=== PATIENT | male | born 1935 | race Caucasian/White ===

== ENCOUNTER 2017-04-13 18:15 | Inpatient (IN) | payer MEDICARE ==
[~2017-04-13] VITALS: Ht 188 cm; Wt 89.0 kg
[2017-04-13] VITALS (16 sets, daily range): BP systolic 66–119; BP diastolic 37–63
[~2017-04-13 18:15] MED LIST: AMOXICILLIN500 MG PO; BABY ASPIRIN81 MG PO; CODLIVER OIL OR; E400400 UNIT PO; FISH OIL1000 MG PO; GABAPENTIN300 MG PO; GARLIC100 MG OR; LISINOPRIL5 MG PO; LYRICA50 MG PO; MULTIVITAM10 OR; VALTREX1 GM PO; VITAMIN B-121000 MC1 SL; VITAMIN C500 MG PO; ZINC25 MG PO
[2017-04-13 18:51] LABS: HEMATOCRIT 33.9 % (39.0-50.0); HEMOGLOBIN 11.5 g/dl (14.0-18.0); IMMATURE GRANULOCYTES 1.8 % (0.0-1.0); MEAN CELL VOLUME 89.4 fL CALC (80.0-100.0); MEAN CORPUSCULAR HGB 30.3 pG CALC (26.0-32.0); MEAN CORPUSCULAR HGB CONC 33.9 g/L CALC (32.0-36.0); NEUT# 8.05 thou/uL (1.82-7.42); RED BLOOD COUNT 3.79 mill/uL (4.70-6.10); RED CELL DISTRI WIDTH 13.2 % (11.5-15.5)
[2017-04-13] MEDS ORDERED: ASPIRIN81 MG PO (19:00)
[2017-04-13] MEDS ORDERED: LIPITOR20 MG PO (19:01)
[2017-04-13 19:02] LABS: ALBUMIN 2.8 g/dL (3.2-5.0); BILIRUBIN, TOTAL 0.8 mg/dL (0.0-1.4); CALCIUM 8.2 mg/dL (8.4-10.2); POTASSIUM 4.2 mmol/l (3.5-5.1); TOTAL PROTEIN 5.1 g/dL (6.3-8.2)
[2017-04-13 19:05] LABS: CREATININE 5.3 mg/dL (0.7-1.3)
[2017-04-13 20:01] LABS: URINE BILIRUBIN - DIPSTICK NEGATIVE (NEGATIVE); URINE BLOOD DIPSTICK NEGATIVE (NEGATIVE); URINE COLOR YELLOW; URINE GLUCOSE - DIPSTICK NEGATIVE (NEGATIVE); URINE KETONE TRACE mg/dL (NEGATIVE); URINE LEUK ESTERASE NEGATIVE (NEGATIVE); URINE NITRITE - DIPSTICK NEGATIVE (Negative); URINE PROTEIN - DIPSTICK NEGATIVE (NEG-TRACE); URINE SPECIFIC GRAVITY >=1.030; URINE UROBILINOGEN - DIPSTICK 0.2 E.U./dL (0.2)
[2017-04-13 20:05] LABS: URINE CLARITY CLEAR
[2017-04-13 22:48] LABS: HEMATOCRIT 28.9 % (39.0-50.0); HEMOGLOBIN 9.7 g/dl (14.0-18.0)
[2017-04-14] VITALS: BP 116/54
[2017-04-14 00:15] VITALS: BP 117/53
== END 2017-04-14 00:30 | DRG 683 ==
LOC: ED 18:15 → ED-I 19:20 → ED 19:38 → ICU 19:39
PROVIDERS: Emergency Medicine; ADMIT Internal Medicine; ATTEND Internal Medicine
PROC: 30233N1 Transfusion of Nonautologous Red Blood Cells into Peripheral Vein, Percutaneous Approach (ICD-10-PCS; principal; 2017-04-14)
DX: N17.9 Acute kidney failure, unspecified (principal); D62 Acute posthemorrhagic anemia; R19.5 Other fecal abnormalities; H91.93 Unspecified hearing loss, bilateral; D33.3 Benign neoplasm of cranial nerves; Z92.3 Personal history of irradiation; Z86.73 Personal history of transient ischemic attack (TIA), and cerebral infarction without residual deficits
CPT/HCPCS: P9016; S0164

== ENCOUNTER 2017-07-17 20:30 | Inpatient (IN) | payer MEDICARE ==
[~2017-07-17] VITALS: Ht 188 cm; Wt 95.3 kg
[~2017-07-17 20:30] MED LIST changes: +ASPIRIN81 MG PO; +LIPITOR20 MG PO
[2017-07-17 21:06] LABS: URINE BILIRUBIN - DIPSTICK NEGATIVE (NEGATIVE); URINE BLOOD DIPSTICK NEGATIVE (NEGATIVE); URINE COLOR YELLOW; URINE GLUCOSE - DIPSTICK NEGATIVE (NEGATIVE); URINE KETONE NEGATIVE (NEGATIVE); URINE LEUK ESTERASE TRACE (NEGATIVE); URINE NITRITE - DIPSTICK NEGATIVE (Negative); URINE PH 5.5 (4.5-8.0); URINE PROTEIN - DIPSTICK 30 mg/dL (NEG-TRACE); URINE SPECIFIC GRAVITY >=1.030; URINE UROBILINOGEN - DIPSTICK 0.2 E.U./dL (0.2)
[2017-07-17 21:06] LABS: HEMATOCRIT 38.7 % (39.0-50.0); HEMOGLOBIN 12.7 g/dl (14.0-18.0); IMMATURE GRANULOCYTES 0.2 % (0.0-1.0); MEAN CELL VOLUME 91.1 fL CALC (80.0-100.0); MEAN CORPUSCULAR HGB 29.9 pG CALC (26.0-32.0); MEAN CORPUSCULAR HGB CONC 32.8 g/L CALC (32.0-36.0); NEUT# 4.44 thou/uL (1.82-7.42); RED BLOOD COUNT 4.25 mill/uL (4.70-6.10); RED CELL DISTRI WIDTH 13.1 % (11.5-15.5)
[2017-07-17 21:13] LABS: URINE CLARITY CLEAR; URINE RBC 0-2 RBC/hpf (0-5)
[2017-07-17 21:19] LABS: INFLUENZA A NONE DETECTED (NONE DETECT); INFLUENZA B NONE DETECTED (NONE DETECT)
[2017-07-17 21:19] LABS: ALBUMIN 4.1 g/dL (3.2-5.0); BILIRUBIN, TOTAL 0.7 mg/dL (0.0-1.4); CREATININE 1.6 mg/dL (0.7-1.3); POTASSIUM 4.1 mmol/l (3.5-5.1)
[2017-07-17] MEDS ORDERED: AMLODIPINE5 MG PO (22:21)
[2017-07-17] MEDS ORDERED: METOPROL TAR25 MG PO (22:22)
[2017-07-17] MEDS ORDERED: PROTONIX40 M2 PO (22:22)
[2017-07-17] MEDS ORDERED: CARAFATE PO (22:23)
[2017-07-17] MEDS ORDERED: FERR SULFATE325 MG PO (22:24)
[2017-07-17 22:44] VITALS: BP 120/69
[2017-07-18] VITALS (8 sets, daily range): BP systolic 103–160; BP diastolic 61–84
[2017-07-19 03:53] VITALS: BP 139/72
[2017-07-19 08:55] VITALS: BP 139/64
[2017-07-19 12:03] VITALS: BP 129/68
[2017-07-19 17:07] VITALS: BP 131/71
[2017-07-19 19:30] VITALS: BP 122/55
[2017-07-20 00:45] VITALS: BP 138/70
[2017-07-20 04:40] VITALS: BP 139/76
[2017-07-20 05:18] LABS: HEMATOCRIT 33.7 % (39.0-50.0); HEMOGLOBIN 11.2 g/dl (14.0-18.0); IMMATURE GRANULOCYTES 0.4 % (0.0-1.0); MEAN CELL VOLUME 89.9 fL CALC (80.0-100.0); MEAN CORPUSCULAR HGB 29.9 pG CALC (26.0-32.0); MEAN CORPUSCULAR HGB CONC 33.2 g/L CALC (32.0-36.0); NEUT# 2.45 thou/uL (1.82-7.42); RED BLOOD COUNT 3.75 mill/uL (4.70-6.10); RED CELL DISTRI WIDTH 12.9 % (11.5-15.5)
[2017-07-20 05:38] LABS: BILIRUBIN, TOTAL 0.4 mg/dL (0.0-1.4); CREATININE 1.4 mg/dL (0.7-1.3); MAGNESIUM 1.7 mg/dL (1.6-2.3); POTASSIUM 4.1 mmol/l (3.5-5.1); TOTAL PROTEIN 5.6 g/dL (6.3-8.2)
[2017-07-20 05:39] LABS: ALBUMIN 2.9 g/dL (3.2-5.0)
[2017-07-20 08:38] VITALS: BP 141/87
[2017-07-20 10:48] VITALS: BP 132/77
== END 2017-07-20 15:00 | disposition home or self-care (01) | DRG 872 ==
LOC: ED 20:30 → ED-I 20:50 → ED 21:42 → MS2 21:43
PROVIDERS: Emergency Medicine; Nurse Practitioner Family; ADMIT Internal Medicine; ATTEND Internal Medicine
DX: A41.89 Other specified sepsis (principal); I48.91 Unspecified atrial fibrillation; I69.391 Dysphagia following cerebral infarction; F41.9 Anxiety disorder, unspecified; F42.9 Obsessive-compulsive disorder, unspecified; R13.10 Dysphagia, unspecified; K26.9 Duodenal ulcer, unspecified as acute or chronic, without hemorrhage or perforation
CPT/HCPCS: J0692

== ENCOUNTER → 2018-05-18 | Outpatient (REF) | payer MEDICARE ==
[~2018-05-18] MED LIST changes: +AMLODIPINE5 MG PO; +CARAFATE PO; +FERR SULFATE325 MG PO; +METOPROL TAR25 MG PO; +PROTONIX40 M2 PO
[2018-05-18 11:20] LABS: HEMOGLOBIN 13.7 g/dl (14.0-18.0); MEAN CELL VOLUME 92.9 fL CALC (80.0-100.0); MEAN CORPUSCULAR HGB 30.3 pG CALC (26.0-32.0); MEAN CORPUSCULAR HGB CONC 32.6 g/L CALC (32.0-36.0); RED BLOOD COUNT 4.52 mill/uL (4.70-6.10); RED CELL DISTRI WIDTH 13.2 % (11.5-15.5)
[2018-05-18 11:40] LABS: ALBUMIN 3.9 g/dL (3.2-5.0); BILIRUBIN, TOTAL 0.6 mg/dL (0.0-1.4); CHOLESTEROL HDL RATIO 2.4 (<4.4 (CALC)); CREATININE 1.6 mg/dL (0.7-1.3); POTASSIUM 4.4 mmol/l (3.5-5.1); TOTAL PROTEIN 6.4 g/dL (6.3-8.2)
== END | disposition home or self-care (01) ==
LOC: LAB 10:16
PROVIDERS: ATTEND Internal Medicine
DX: D33.3 Benign neoplasm of cranial nerves (principal); I48.0 Paroxysmal atrial fibrillation; N18.3 Chronic kidney disease, stage 3 (moderate); Z86.73 Personal history of transient ischemic attack (TIA), and cerebral infarction without residual deficits; Z87.11 Personal history of peptic ulcer disease; I10 Essential (primary) hypertension

== ENCOUNTER 2018-12-25 06:19 | Emergency (ER) | payer MEDICARE ==
[~2018-12-25] VITALS: Ht 188 cm; Wt 90.0 kg
[2018-12-25 06:57] LABS: HEMATOCRIT 40.5 % (39.0-50.0); HEMOGLOBIN 13.3 g/dl (14.0-18.0); IMMATURE GRANULOCYTES 0.3 % (0.0-5.0); MEAN CELL VOLUME 90.8 fL CALC (80.0-100.0); MEAN CORPUSCULAR HGB 29.8 pG CALC (26.0-32.0); MEAN CORPUSCULAR HGB CONC 32.8 g/L CALC (32.0-36.0); NEUT# 7.46 thou/uL (1.82-7.42); RED BLOOD COUNT 4.46 mill/uL (4.70-6.10); RED CELL DISTRI WIDTH 13.1 % (11.5-15.5)
[2018-12-25] MEDS ORDERED: COUMADIN5 MG PO (07:03)
[2018-12-25] MEDS ORDERED: WARFARIN2.5 MG PO (07:04)
[2018-12-25 07:09] LABS: ALBUMIN 3.9 g/dL (3.2-5.0); BILIRUBIN, TOTAL 0.8 mg/dL (0.0-1.4); CREATININE 1.5 mg/dL (0.7-1.3); POTASSIUM 4.7 mmol/l (3.5-5.1); TOTAL PROTEIN 6.5 g/dL (6.3-8.2)
[2018-12-25 07:32] LABS: MYOGLOBIN 52 ng/mL (0 - 121)
[2018-12-25 08:39] LABS: URINE BILIRUBIN - DIPSTICK NEGATIVE (NEGATIVE); URINE BLOOD DIPSTICK NEGATIVE (NEGATIVE); URINE COLOR YELLOW; URINE GLUCOSE - DIPSTICK NEGATIVE (NEGATIVE); URINE KETONE NEGATIVE (NEGATIVE); URINE LEUK ESTERASE NEGATIVE (NEGATIVE); URINE NITRITE - DIPSTICK NEGATIVE (Negative); URINE PROTEIN - DIPSTICK NEGATIVE (NEG-TRACE); URINE SPECIFIC GRAVITY 1.025; URINE UROBILINOGEN - DIPSTICK 0.2 E.U./dL (0.2)
[2018-12-25 10:27] VITALS: BP 149/58
== END 2018-12-25 10:18 | disposition short-term general hospital (02) ==
LOC: ED 06:19
PROVIDERS: Emergency Medicine
DX: I71.2 Thoracic aortic aneurysm, without rupture (principal); M54.6 Pain in thoracic spine; N18.3 Chronic kidney disease, stage 3 (moderate); Z86.73 Personal history of transient ischemic attack (TIA), and cerebral infarction without residual deficits
CPT/HCPCS: Q9967

== ENCOUNTER 2019-01-22 00:42 | Inpatient (IN) | payer MEDICARE ==
[~2019-01-22] VITALS: Ht 188 cm; Wt 99.0 kg
[~2019-01-22 00:42] MED LIST changes: +COUMADIN5 MG PO; +WARFARIN2.5 MG PO
[2019-01-22 01:13] LABS: HEMATOCRIT 36.5 % (39.0-50.0); HEMOGLOBIN 11.7 g/dl (14.0-18.0); IMMATURE GRANULOCYTES 0.4 % (0.0-5.0); MEAN CELL VOLUME 92.6 fL CALC (80.0-100.0); MEAN CORPUSCULAR HGB 29.7 pG CALC (26.0-32.0); MEAN CORPUSCULAR HGB CONC 32.1 g/L CALC (32.0-36.0); NEUT# 6.83 thou/uL (1.82-7.42); RED BLOOD COUNT 3.94 mill/uL (4.70-6.10); RED CELL DISTRI WIDTH 14.2 % (11.5-15.5)
[2019-01-22 01:31] LABS: ALBUMIN 3.2 g/dL (3.2-5.0); ANION GAP 11 (6-22 (CALC)); BILIRUBIN, TOTAL 0.7 mg/dL (0.0-1.4); BUN 23 mg/dL (8-23); BUN/CREATININE RATIO 17 (12-20 (CALC)); CARBON DIOXIDE 25 mmol/l (22-30); CHLORIDE 108 mmol/l (95-108); CREATININE 1.4 mg/dL (0.7-1.3); GFR 49 ML/MIN (>=60 (CALC)); GFR FOR AFR.AMER. 59 ML/MIN (>=60 (CALC)); POTASSIUM 4.1 mmol/l (3.5-5.1); SGOT/AST 18 u/l (19-48); SODIUM 140 mmol/l (137-146); TOTAL PROTEIN 5.8 g/dL (6.3-8.2)
[2019-01-22 01:32] LABS: ALKALINE PHOSPHATASE 187 u/l (38-126)
[2019-01-22 01:39] LABS: MYOGLOBIN 42 ng/mL (0 - 121)
[2019-01-22 01:51] LABS: URINE BILIRUBIN - DIPSTICK NEGATIVE (NEGATIVE); URINE BLOOD DIPSTICK TRACE-INTACT (NEGATIVE); URINE COLOR YELLOW; URINE GLUCOSE - DIPSTICK NEGATIVE (NEGATIVE); URINE KETONE NEGATIVE (NEGATIVE); URINE LEUK ESTERASE NEGATIVE (NEGATIVE); URINE NITRITE - DIPSTICK NEGATIVE (Negative); URINE PH 5.5 (4.5-8.0); URINE PROTEIN - DIPSTICK NEGATIVE (NEG-TRACE); URINE UROBILINOGEN - DIPSTICK 0.2 E.U./dL (0.2)
[2019-01-22 04:20] VITALS: BP 130/65
[2019-01-22 05:30] LABS: HEMOGLOBIN 10.8 g/dl (14.0-18.0); IMMATURE GRANULOCYTES 0.4 % (0.0-5.0); MEAN CELL VOLUME 94.2 fL CALC (80.0-100.0); MEAN CORPUSCULAR HGB 29.9 pG CALC (26.0-32.0); MEAN CORPUSCULAR HGB CONC 31.8 g/L CALC (32.0-36.0); NEUT# 11.95 thou/uL (1.82-7.42); RED BLOOD COUNT 3.61 mill/uL (4.70-6.10); RED CELL DISTRI WIDTH 14.1 % (11.5-15.5)
[2019-01-22 05:45] LABS: ALBUMIN 2.7 g/dL (3.2-5.0); BILIRUBIN, TOTAL 0.6 mg/dL (0.0-1.4); CREATININE 1.5 mg/dL (0.7-1.3); POTASSIUM 3.8 mmol/l (3.5-5.1); TOTAL PROTEIN 5.2 g/dL (6.3-8.2)
[2019-01-22 07:57] LABS: INTERNATIONAL NORMALIZED RATIO 3.9 RATIO (0.7-1.3); PROTHROMBIN TIME 38.1 SECONDS (9.0-12.5)
[2019-01-22] MEDS ORDERED: AMIODARONE200 MG PO (10:13)
[2019-01-22 17:15] VITALS: BP 134/72
[2019-01-22 19:18] VITALS: BP 159/77
[2019-01-23 00:12] VITALS: BP 144/73
[2019-01-23 03:29] VITALS: BP 147/88
[2019-01-23 05:59] LABS: INTERNATIONAL NORMALIZED RATIO 3.5 RATIO (0.7-1.3); PROTHROMBIN TIME 34.9 SECONDS (9.0-12.5)
[2019-01-23 07:59] VITALS: BP 123/81
[2019-01-23 08:30] LABS: HEMATOCRIT 35.3 % (39.0-50.0); HEMOGLOBIN 11.4 g/dl (14.0-18.0); IMMATURE GRANULOCYTES 0.3 % (0.0-5.0); MEAN CELL VOLUME 93.1 fL CALC (80.0-100.0); MEAN CORPUSCULAR HGB 30.1 pG CALC (26.0-32.0); MEAN CORPUSCULAR HGB CONC 32.3 g/L CALC (32.0-36.0); NEUT# 4.53 thou/uL (1.82-7.42); RED BLOOD COUNT 3.79 mill/uL (4.70-6.10); RED CELL DISTRI WIDTH 14.4 % (11.5-15.5)
[2019-01-23 08:36] LABS: ANION GAP 8 (6-22 (CALC)); BUN 19 mg/dL (8-23); BUN/CREATININE RATIO 15 (12-20 (CALC)); CARBON DIOXIDE 24 mmol/l (22-30); CHLORIDE 110 mmol/l (95-108); CREATININE 1.2 mg/dL (0.7-1.3); GFR 58 ML/MIN (>=60 (CALC)); GFR FOR AFR.AMER. > 60 ML/MIN (>=60 (CALC)); MAGNESIUM 1.5 mg/dL (1.6-2.3); POTASSIUM 4.2 mmol/l (3.5-5.1); SODIUM 137 mmol/l (137-146)
[2019-01-23 10:40] VITALS: BP 146/81
[2019-01-23 18:29] VITALS: BP 140/70
[2019-01-24] VITALS: BP 137/71
[2019-01-24 04:07] VITALS: BP 141/87
[2019-01-24 05:33] LABS: HEMATOCRIT 34.7 % (39.0-50.0); HEMOGLOBIN 11.4 g/dl (14.0-18.0); IMMATURE GRANULOCYTES 0.4 % (0.0-5.0); MEAN CELL VOLUME 91.1 fL CALC (80.0-100.0); MEAN CORPUSCULAR HGB 29.9 pG CALC (26.0-32.0); MEAN CORPUSCULAR HGB CONC 32.9 g/L CALC (32.0-36.0); NEUT# 2.66 thou/uL (1.82-7.42); RED BLOOD COUNT 3.81 mill/uL (4.70-6.10); RED CELL DISTRI WIDTH 14.1 % (11.5-15.5)
[2019-01-24 05:35] LABS: ANION GAP 11 (6-22 (CALC)); BUN 17 mg/dL (8-23); BUN/CREATININE RATIO 14 (12-20 (CALC)); CARBON DIOXIDE 24 mmol/l (22-30); CHLORIDE 107 mmol/l (95-108); CREATININE 1.2 mg/dL (0.7-1.3); GFR 58 ML/MIN (>=60 (CALC)); GFR FOR AFR.AMER. > 60 ML/MIN (>=60 (CALC)); MAGNESIUM 1.5 mg/dL (1.6-2.3); SODIUM 138 mmol/l (137-146)
[2019-01-24 06:30] LABS: INTERNATIONAL NORMALIZED RATIO 1.9 RATIO (0.7-1.3); PROTHROMBIN TIME 19.7 SECONDS (9.0-12.5)
[2019-01-24 10:50] VITALS: BP 142/86
[2019-01-24 15:05] VITALS: BP 132/74
[2019-01-24 19:02] VITALS: BP 131/80
[2019-01-24 23:47] VITALS: BP 113/63
[2019-01-25] VITALS (9 sets, daily range): BP systolic 107–150; BP diastolic 51–80
[2019-01-25 04:43] LABS: HEMATOCRIT 33.5 % (39.0-50.0); IMMATURE GRANULOCYTES 0.4 % (0.0-5.0); MEAN CELL VOLUME 90.1 fL CALC (80.0-100.0); MEAN CORPUSCULAR HGB 29.6 pG CALC (26.0-32.0); MEAN CORPUSCULAR HGB CONC 32.8 g/L CALC (32.0-36.0); NEUT# 2.5 thou/uL (1.82-7.42); RED BLOOD COUNT 3.72 mill/uL (4.70-6.10); RED CELL DISTRI WIDTH 13.9 % (11.5-15.5)
[2019-01-25 05:01] LABS: ANION GAP 10 (6-22 (CALC)); BUN 16 mg/dL (8-23); BUN/CREATININE RATIO 14 (12-20 (CALC)); CARBON DIOXIDE 24 mmol/l (22-30); CHLORIDE 108 mmol/l (95-108); CREATININE 1.2 mg/dL (0.7-1.3); GFR 58 ML/MIN (>=60 (CALC)); GFR FOR AFR.AMER. > 60 ML/MIN (>=60 (CALC)); SODIUM 138 mmol/l (137-146)
[2019-01-25 05:02] LABS: INTERNATIONAL NORMALIZED RATIO 1.4 RATIO (0.7-1.3); PROTHROMBIN TIME 14.7 SECONDS (9.0-12.5)
[2019-01-25 11:30] LABS: HEMATOCRIT 32.2 % (39.0-50.0); HEMOGLOBIN 10.4 g/dl (14.0-18.0); IMMATURE GRANULOCYTES 0.8 % (0.0-5.0); MEAN CELL VOLUME 92.5 fL CALC (80.0-100.0); MEAN CORPUSCULAR HGB 29.9 pG CALC (26.0-32.0); MEAN CORPUSCULAR HGB CONC 32.3 g/L CALC (32.0-36.0); NEUT# 6.55 thou/uL (1.82-7.42); RED BLOOD COUNT 3.48 mill/uL (4.70-6.10); RED CELL DISTRI WIDTH 13.9 % (11.5-15.5)
[2019-01-26] VITALS (10 sets, daily range): BP systolic 128–161; BP diastolic 68–85
[2019-01-26 05:10] LABS: HEMATOCRIT 32.1 % (39.0-50.0); HEMOGLOBIN 10.4 g/dl (14.0-18.0); IMMATURE GRANULOCYTES 0.5 % (0.0-5.0); MEAN CELL VOLUME 92.5 fL CALC (80.0-100.0); MEAN CORPUSCULAR HGB CONC 32.4 g/L CALC (32.0-36.0); NEUT# 5.18 thou/uL (1.82-7.42); RED BLOOD COUNT 3.47 mill/uL (4.70-6.10)
[2019-01-26 05:17] LABS: INTERNATIONAL NORMALIZED RATIO 1.5 RATIO (0.7-1.3); PROTHROMBIN TIME 15.4 SECONDS (9.0-12.5)
[2019-01-26 05:26] LABS: ALBUMIN 2.4 g/dL (3.2-5.0); BILIRUBIN, TOTAL 0.7 mg/dL (0.0-1.4); CREATININE 1.4 mg/dL (0.7-1.3); TOTAL PROTEIN 4.6 g/dL (6.3-8.2)
[2019-01-27 04:20] VITALS: BP 162/84
[2019-01-27 05:22] LABS: HEMATOCRIT 31.3 % (39.0-50.0); HEMOGLOBIN 10.1 g/dl (14.0-18.0); MEAN CELL VOLUME 93.4 fL CALC (80.0-100.0); MEAN CORPUSCULAR HGB 30.1 pG CALC (26.0-32.0); MEAN CORPUSCULAR HGB CONC 32.3 g/L CALC (32.0-36.0); NEUT# 5.81 thou/uL (1.82-7.42); RED BLOOD COUNT 3.35 mill/uL (4.70-6.10); RED CELL DISTRI WIDTH 14.1 % (11.5-15.5)
[2019-01-27 05:39] LABS: INTERNATIONAL NORMALIZED RATIO 2.8 RATIO (0.7-1.3); PROTHROMBIN TIME 27.7 SECONDS (9.0-12.5)
[2019-01-27 05:42] LABS: ANION GAP 10 (6-22 (CALC)); BUN 15 mg/dL (8-23); BUN/CREATININE RATIO 11 (12-20 (CALC)); CARBON DIOXIDE 24 mmol/l (22-30); CHLORIDE 108 mmol/l (95-108); CREATININE 1.3 mg/dL (0.7-1.3); GFR 53 ML/MIN (>=60 (CALC)); GFR FOR AFR.AMER. > 60 ML/MIN (>=60 (CALC)); MAGNESIUM 1.7 mg/dL (1.6-2.3); POTASSIUM 4.2 mmol/l (3.5-5.1); SODIUM 138 mmol/l (137-146)
[2019-01-27 08:07] VITALS: BP 131/73
[2019-01-27 08:56] LABS: ALKALINE PHOSPHATASE 89 u/l (38-126); SGOT/AST 52 u/l (19-48)
[2019-01-27 11:04] VITALS: BP 112/63
[2019-01-27 16:30] VITALS: BP 156/80
[2019-01-27 19:05] VITALS: BP 146/74
[2019-01-28 00:06] VITALS: BP 165/88
[2019-01-28 04:29] VITALS: BP 155/81
[2019-01-28 05:05] LABS: HEMATOCRIT 30.9 % (39.0-50.0); MEAN CORPUSCULAR HGB 29.8 pG CALC (26.0-32.0); MEAN CORPUSCULAR HGB CONC 32.4 g/L CALC (32.0-36.0); NEUT# 6.24 thou/uL (1.82-7.42); RED BLOOD COUNT 3.36 mill/uL (4.70-6.10); RED CELL DISTRI WIDTH 14.1 % (11.5-15.5)
[2019-01-28 05:19] LABS: ANION GAP 9 (6-22 (CALC)); BUN 14 mg/dL (8-23); BUN/CREATININE RATIO 11 (12-20 (CALC)); CARBON DIOXIDE 24 mmol/l (22-30); CHLORIDE 108 mmol/l (95-108); CREATININE 1.2 mg/dL (0.7-1.3); GFR 58 ML/MIN (>=60 (CALC)); GFR FOR AFR.AMER. > 60 ML/MIN (>=60 (CALC)); POTASSIUM 3.9 mmol/l (3.5-5.1); SODIUM 137 mmol/l (137-146)
[2019-01-28 05:34] LABS: INTERNATIONAL NORMALIZED RATIO 3.7 RATIO (0.7-1.3); PROTHROMBIN TIME 36.4 SECONDS (9.0-12.5)
[2019-01-28 09:23] VITALS: BP 142/83
[2019-01-28 10:59] VITALS: BP 156/83
[2019-01-28 15:00] VITALS: BP 139/75
[2019-01-28] MEDS ORDERED: AMOX/K CLAV875 M1 PO (17:06)
[2019-01-28] MEDS ORDERED: COUMADIN2.5 MG PO (17:06)
== END 2019-01-28 18:10 | disposition home health service (06) | DRG 854 ==
LOC: ED 00:42 → ED-I 03:26 → ED 03:53 → MS2 03:54
PROVIDERS: Emergency Medicine; Nurse Anesthetist, Certified Registered; Nurse Practitioner Family; Surgery; ADMIT Internal Medicine; ATTEND Internal Medicine
PROC: 0FT40ZZ Resection of Gallbladder, Open Approach (ICD-10-PCS; principal; 2019-01-25)
PROC: 0FJ44ZZ Inspection of Gallbladder, Percutaneous Endoscopic Approach (ICD-10-PCS; 2019-01-25)
PROC: 0F9900Z Drainage of Common Bile Duct with Drainage Device, Open Approach (ICD-10-PCS; 2019-01-25)
PROC: BF001ZZ Plain Radiography of Bile Ducts using Low Osmolar Contrast (ICD-10-PCS; 2019-01-25)
PROC: 0T9B70Z Drainage of Bladder with Drainage Device, Via Natural or Artificial Opening (ICD-10-PCS; 2019-01-25)
DX: A41.9 Sepsis, unspecified organism (principal); K80.00 Calculus of gallbladder with acute cholecystitis without obstruction; K57.32 Diverticulitis of large intestine without perforation or abscess without bleeding; T88.8XXA Other specified complications of surgical and medical care, not elsewhere classified, initial encounter; I12.9 Hypertensive chronic kidney disease with stage 1 through stage 4 chronic kidney disease, or unspecified chronic kidney disease; N18.3 Chronic kidney disease, stage 3 (moderate); I48.0 Paroxysmal atrial fibrillation; R33.8 Other retention of urine; F42.9 Obsessive-compulsive disorder, unspecified; F41.9 Anxiety disorder, unspecified; D63.1 Anemia in chronic kidney disease; E78.5 Hyperlipidemia, unspecified; R79.1 Abnormal coagulation profile; T45.515A Adverse effect of anticoagulants, initial encounter; H91.90 Unspecified hearing loss, unspecified ear; E83.42 Hypomagnesemia; B96.20 Unspecified Escherichia coli [E. coli] as the cause of diseases classified elsewhere; Y83.6 Removal of other organ (partial) (total) as the cause of abnormal reaction of the patient, or of later complication, without mention of misadventure at the time of the procedure; Z86.73 Personal history of transient ischemic attack (TIA), and cerebral infarction without residual deficits; Z79.01 Long term (current) use of anticoagulants
CPT/HCPCS: J0131; J0692; J2710; Q3014; Q9967

== ENCOUNTER 2019-02-06 11:12 | Emergency (ER) | payer MEDICARE ==
[~2019-02-06] VITALS: Ht 188 cm; Wt 97.0 kg
[~2019-02-06 11:12] MED LIST changes: +AMIODARONE200 MG PO; +AMOX/K CLAV875 M1 PO; +COUMADIN2.5 MG PO
[2019-02-06 13:03] VITALS: BP 112/55
== END 2019-02-06 13:03 | disposition home or self-care (01) ==
LOC: ED 11:12
DX: Z48.03 Encounter for change or removal of drains (principal)

== ENCOUNTER 2021-08-18 22:12 | Emergency (ER) | payer MEDICARE ==
[~2021-08-18] VITALS: Ht 188 cm; Wt 100.0 kg
[2021-08-18 22:18] VITALS: BP 103/54
[2021-08-18 22:30] VITALS: BP 96/59
[2021-08-18] MEDS ORDERED: PANTOPRAZOLE SO40 M1 PO (22:41)
[2021-08-18] MEDS ORDERED: XARELTO15 MG PO (22:47)
[2021-08-18 22:57] LABS: HEMOGLOBIN 11.3 g/dl (14.0-18.0); IMMATURE GRANULOCYTES 0.4 % (0.0-5.0); MEAN CELL VOLUME 90.9 fL CALC (80.0-100.0); MEAN CORPUSCULAR HGB 30.1 pG CALC (26.0-32.0); MEAN CORPUSCULAR HGB CONC 33.1 g/dL CAL (32.0-36.0); NEUT# 7.85 thou/uL (1.82-7.42); RED BLOOD COUNT 3.75 mill/uL (4.70-6.10); RED CELL DISTRI WIDTH 13.8 % (11.5-15.5)
[2021-08-18 22:59] LABS: HEMATOCRIT 34.1 % (39.0-50.0)
[2021-08-18 23:00] VITALS: BP 98/59
[2021-08-18 23:15] LABS: BILIRUBIN, TOTAL 0.5 mg/dL (0.0-1.4); CREATININE 2.4 mg/dL (0.7-1.3); POTASSIUM 4.1 mmol/l (3.5-5.1); TOTAL PROTEIN 5.2 g/dL (6.3-8.2)
[2021-08-18 23:22] LABS: ALBUMIN 2.9 g/dL (3.2-5.0)
[2021-08-18 23:30] VITALS: BP 99/54
[2021-08-18 23:41] LABS: ACT PARTIAL THROMBO TIME 38.8 SECONDS (20.0-32.5); INTERNATIONAL NORMALIZED RATIO 1.2 RATIO (0.7-1.3); PROTHROMBIN TIME 12.7 SECONDS (9.0-12.5)
[2021-08-19] VITALS: BP 110/53
[2021-08-19 00:30] VITALS: BP 105/50
== END 2021-08-19 01:03 | disposition short-term general hospital (02) ==
LOC: ED 22:12
PROVIDERS: Emergency Medicine
DX: U07.1 COVID-19 (principal); R50.9 Fever, unspecified; R05.9 Cough, unspecified; M79.10 Myalgia, unspecified site; R79.89 Other specified abnormal findings of blood chemistry; I12.9 Hypertensive chronic kidney disease with stage 1 through stage 4 chronic kidney disease, or unspecified chronic kidney disease; N18.30 Chronic kidney disease, stage 3 unspecified; I48.91 Unspecified atrial fibrillation; Z86.73 Personal history of transient ischemic attack (TIA), and cerebral infarction without residual deficits; Z79.01 Long term (current) use of anticoagulants; Z79.82 Long term (current) use of aspirin